=== PATIENT | male | born 1945 | race Caucasian/White ===

== ENCOUNTER → 2017-06-22 | Outpatient (CLI) | payer OTHER ==
[~2017-06-22] MED LIST: ASPIR 8181 MG PO; CLARITIN10 MG PO; EFFIENT10 MG PO; FISH OIL 1,001000 M2 PO; FLEXERIL PO; FLOMAX0.4 MG PO; FLONASE 0.05%50 MCG NASAL; FLOVENT HFA 1110 MCG INH; IMDUR 30 MG TAB30 M1 PO; LIPITOR 20 MG T20 M1 PO; LISINOPRIL10 MG PO; METOPROLOL TART25 MG PO; NAPROSYN500 MG PO; NORCO 10-325 T1 EACH PO; PERCOCET 5-3251 EACH PO; PROAIR HFA8.5 GM INH; SIMVASTATIN40 MG PO; VERAPAMIL ER180 MG PO; VITAMIN E400 UNIT PO
--- NOTE | ~2017-06-22 | 2DMMODE ---
[facility] [place] [address] 2 D/M-MODE ECHOCARDIOGRAM Name: CHHAYA PLUNKETT Room #: REG CL [facility]#: [id number] Admission: 06/22/17 Attend Phys: Mariano Womack MD Discharge: Date of : 49 Date of Service: 06/22/17 1508 Report #: [id number] THIS REPORT FOR: //name// APPROVED REPORT Study performed: 06/22/2017 13:27:58 EXAM: Comprehensive 2D, Doppler, and color-flow Echocardiogram Patient Location: Out-Patient Status: routine BSA: 2.24 HR: 55 bpm BP: 157/93 mmHg Rhythm: NSR Other Information Study Quality: Adequate Technically limited study due to body habitus. Indications CAD, stents Echo Enhancing Agent Indication: Endocardial border delineation Agent(s) / Amount(s) Used: Optison 4 cc 2D Dimensions RVDd: 34.29 mm LVEF(%): 58.76 (>50%) IVSd: 12.36 (7-11mm) LVOT Diam: 21.55 (18-24mm) LVDd: 49.86 mm PWd: 12.35 (7-11mm) Ascending Ao: 34.79 (22-36mm) LVDs: 34.30 (25-40mm) Aortic Root: 31.38 mm Mishra's LVEF: 58.76 % Volumes Left Atrial Volume (Systole) Single Plane 4CH: 35.86 mL Single Plane 2CH: 56.77 mL LA ESV Index: 21.00 mL/m2 Aortic Valve AoV Peak Héctor.: 1.24 m/s AO Peak Gr.: 6.16 mmHg LVOT Max P.66 mmHg LVOT Max V: 1.08 m/s [facility] [address] [place] [address] 2 D/M-MODE ECHOCARDIOGRAM Name: CHHAYA PLUNKETT Room #: REG [facility]#: [id number] Admission: 06/22/17 Attend Phys: Mariano Womack MD Discharge: Date of : 49 Date of Service: 06/22/17 1508 Report #: [id number] LAYLA Vmax: 3.17 cm2 Mitral Valve E/A Ratio: 0.8 MV Decel. Time: 176.70 ms MV E Max Héctor.: 0.70 m/s MV A Héctor.: 0.90 m/s MV PHT: 51.24 ms IVRT: 87.66 ms Pulmonary Valve PV Peak Héctor.: 0.89 m/s PV Peak Gr.: 3.15 mmHg Tricuspid Valve TR Peak Héctor.: 2.34 m/s RAP Estimate: 5.00 mmHg TR Peak Gr.: 21.93 mmHg PA Pressure: 27.00 mmHg Left Ventricle The left ventricle is normal size. Mild concentric left ventricular hypertrophy. Left ventricular systolic function is normal. LVEF is 55-60%. Grade I - abnormal relaxation pattern. Right Ventricle The right ventricle is normal size. The right ventricular systolic function is normal. Atria The left atrium size is normal. Right atrium is at the upper limits of normal. Aortic Valve The aortic valve is sclerotic. Mild aortic regurgitation. There is no aortic valvular stenosis. Mitral Valve The mitral valve is normal in structure. There is no mitral valve regurgitation noted. No evidence of mitral valve stenosis. Tricuspid Valve The tricuspid valve is normal in structure. Mild tricuspid regurgitation. Estimated PAP 25-30 mmHg. Pulmonic Valve The pulmonary valve is normal in structure. Trace pulmonic regurgitation. [facility] [address] [place] [address] 2 D/M-MODE ECHOCARDIOGRAM Name: DIMITRIOSCHHAYA EPIFANIO Room #: REG CL [facility].#: [id number] Admission: 06/22/17 Attend Phys: Mariano Womack MD Discharge: Date of : 49 Date of Service: 06/22/17 1508 Report #: [id number] Great Vessels The aortic root is normal in size. The ascending aorta is normal in size. IVC is normal in size and collapses >50% with inspiration. Pericardium There is no pericardial effusion. <Conclusion> The left ventricle is normal size. Mild concentric left ventricular hypertrophy. Left ventricular systolic function is normal. Grade I - abnormal relaxation pattern. The right ventricle is normal size. The left atrium size is normal. The aortic valve is sclerotic. Mild aortic regurgitation. There is no mitral valve regurgitation noted. Mild tricuspid regurgitation. Estimated PAP 25-30 mmHg. <ELECTRONICALLY SIGNED> By: Mariano Womack MD 06/22/17 1508 1508 1508 Mariano Womack MD /INF
== END ==
LOC: CV 07:19
DX: I08.2 Rheumatic disorders of both aortic and tricuspid valves (principal); I25.10 Atherosclerotic heart disease of native coronary artery without angina pectoris

== ENCOUNTER → 2018-07-10 | Outpatient (CLI) | payer OTHER | LOC: NUC 12:06 | DX: I25.10 Atherosclerotic heart disease of native coronary artery without angina pectoris (principal); I10 Essential (primary) hypertension; E78.5 Hyperlipidemia, unspecified; Z87.891 Personal history of nicotine dependence; Z79.899 Other long term (current) drug therapy; Z88.5 Allergy status to narcotic agent; Z88.1 Allergy status to other antibiotic agents ==

== ENCOUNTER 2019-02-05 10:25 | Emergency (ER) | payer OTHER ==
[~2019-02-05] VITALS: Ht 172.7 cm; Wt 97.5 kg
[2019-02-05 10:48] LABS: HEMATOCRIT 39.9 % (42.0-52.0); HEMOGLOBIN 13.2 gm/dL (14.0-18.0); MCH 27.6 pg (26.0-34.0); MCV 83.6 fL (80.0-100.0); PLATELET COUNT 171 thou/uL (150-400); RBC 4.77 mil/uL (4.50-6.00); RDW 16.5 % (10.5-14.5); WBC 4.8 thou/uL (4.0-11.0)
[2019-02-05 11:01] LABS: ANION GAP 5 mmol/L (7-16); BUN 13 mg/dL (7-18); CALCIUM 9.3 mg/dL (8.5-10.1); CHLORIDE 100 mmol/L (98-107); CO2 28 mmol/L (21-32); GLUCOSE 133 mg/dL (74-106); SODIUM 133 mmol/L (136-145)
[2019-02-05 11:02] LABS: POTASSIUM 4.9 mmol/L (3.5-5.1)
[2019-02-05 11:09] LABS: ALBUMIN 3.3 g/dL (3.4-5.0); MAGNESIUM 1.7 mg/dL (1.8-2.4); PROTIME 18.3 Seconds (9.3-11.4); SGOT 25 U/L (15-37); SGPT 15 U/L (30-65); TOTAL BILIRUBIN 0.7 mg/dL (<0.1-1.0); TOTAL PROTEIN 7.7 g/dL (6.4-8.2); TROPONIN-I <0.06 ng/mL (<0.06)
[2019-02-05] MEDS ORDERED: XARELTO20 MG PO (11:14)
[2019-02-05 11:16] LABS: INR 1.8
[2019-02-05 11:17] LABS: APTT 52.6 Seconds (24.5-32.8); D-DIMER 2.17 ug/mLFEU (0.19-0.50)
[2019-02-05 11:46] LABS: ABSOLUTE NEUTROPHILS 2.4 thou/uL (1.4-8.2); PLATELET ESTIMATE NORMAL
--- NOTE | 2019-02-05 13:58 | EKG ---
[place] [address] [facility] [place] [address] ELECTROCARDIOGRAM REPORT Name: CHHAYA PLUNKETT Room #: REG [facility]#: [id number] Admission: 02/05/19 Attend Phys: Discharge: Date of : 49 Report #: [id number] THIS REPORT FOR: //name// [facility] ED Test Date: 2019-02-05 Test Time: 10:28:38 Pat Name: CHHAYA PLUNKETT Department: Room: Gender: M Customer Service Sales Associate: : 1945 Requested By: Govind Miller Order Number: [id number] MD: Torrey Chavez Measurements Intervals [place] Rate: 87 P: 47 NH: 145 QRS: 16 QRSD: 85 T: 47 QT: 341 QTc: 411 Interpretive Statements Sinus rhythm Minimal ST depression, lateral leads Baseline wander in lead(s) V3,V4,V5,V6 Compared to ECG 06/10/2016 07:27:00 ST (T wave) deviation now present T-wave abnormality no longer present Electronically Signed On 02-05-2019 13:58:49 CDT by Torrey Chavez [email or web address] <ELECTRONICALLY SIGNED> By: Torrey Chavez MD 02/05/19 1358 1028 1028 Torrey Chavez MD /EPI
[2019-02-05] MEDS ORDERED: NORCO 5-325 TA1 EAC1 PO (14:09)
[2019-02-05] MEDS ORDERED: NITROGLYCERIN0.4 MG SUBLING (14:10)
[2019-02-05 14:14] VITALS: BP 109/80
== END 2019-02-05 14:22 | disposition left against medical advice (07) ==
LOC: ER 10:25
PROVIDERS: Emergency Medicine
DX: R07.89 Other chest pain (principal); I25.10 Atherosclerotic heart disease of native coronary artery without angina pectoris; J45.909 Unspecified asthma, uncomplicated; I10 Essential (primary) hypertension; E78.00 Pure hypercholesterolemia, unspecified; Z85.828 Personal history of other malignant neoplasm of skin; Z88.5 Allergy status to narcotic agent; Z88.1 Allergy status to other antibiotic agents; Z88.6 Allergy status to analgesic agent; Z98.890 Other specified postprocedural states; Z87.891 Personal history of nicotine dependence; Z95.2 Presence of prosthetic heart valve; Z86.711 Personal history of pulmonary embolism; Z86.718 Personal history of other venous thrombosis and embolism

== ENCOUNTER → 2019-08-14 | Outpatient (CLI) | payer OTHER ==
[~2019-08-14] MED LIST changes: +NITROGLYCERIN0.4 MG SUBLING; +NORCO 5-325 TA1 EAC1 PO; +XARELTO20 MG PO
== END ==
LOC: SJCVC 14:18
DX: I25.10 Atherosclerotic heart disease of native coronary artery without angina pectoris (principal); I10 Essential (primary) hypertension; E78.00 Pure hypercholesterolemia, unspecified; R60.9 Edema, unspecified

== ENCOUNTER → 2020-01-29 | Outpatient (CLI) | payer OTHER | LOC: SJCVCIMAG 08:47 | PROVIDERS: ATTEND Internal Medicine Cardiovascular Disease | DX: I08.2 Rheumatic disorders of both aortic and tricuspid valves (principal); I11.9 Hypertensive heart disease without heart failure; R94.31 Abnormal electrocardiogram [ECG] [EKG]; R00.0 Tachycardia, unspecified; I25.10 Atherosclerotic heart disease of native coronary artery without angina pectoris; E78.00 Pure hypercholesterolemia, unspecified; Z79.899 Other long term (current) drug therapy ==

== ENCOUNTER → 2020-03-25 | Outpatient (CLI) | payer OTHER | LOC: SJCVC 14:09 | PROVIDERS: ATTEND Internal Medicine Cardiovascular Disease | DX: I25.10 Atherosclerotic heart disease of native coronary artery without angina pectoris (principal); R94.31 Abnormal electrocardiogram [ECG] [EKG]; I10 Essential (primary) hypertension; E78.00 Pure hypercholesterolemia, unspecified; R60.9 Edema, unspecified; I25.2 Old myocardial infarction; Z79.899 Other long term (current) drug therapy ==

== ENCOUNTER → 2020-10-13 | Outpatient (CLI) | payer OTHER | LOC: SJCVCIMAG 07:41 | PROVIDERS: ATTEND Internal Medicine Cardiovascular Disease | DX: R00.0 Tachycardia, unspecified (principal); I25.10 Atherosclerotic heart disease of native coronary artery without angina pectoris; I10 Essential (primary) hypertension; E78.00 Pure hypercholesterolemia, unspecified; R60.9 Edema, unspecified; I48.91 Unspecified atrial fibrillation; I25.2 Old myocardial infarction; M19.90 Unspecified osteoarthritis, unspecified site; E78.5 Hyperlipidemia, unspecified; Z86.711 Personal history of pulmonary embolism; Z72.89 Other problems related to lifestyle; Z79.899 Other long term (current) drug therapy; Z98.61 Coronary angioplasty status; Z88.5 Allergy status to narcotic agent; Z88.1 Allergy status to other antibiotic agents ==

== ENCOUNTER → 2021-04-22 | Outpatient (CLI) | payer OTHER | LOC: SJCVC 10:52 | PROVIDERS: ATTEND Internal Medicine Cardiovascular Disease | DX: R94.31 Abnormal electrocardiogram [ECG] [EKG] (principal); R00.0 Tachycardia, unspecified; I10 Essential (primary) hypertension; I25.10 Atherosclerotic heart disease of native coronary artery without angina pectoris; E78.00 Pure hypercholesterolemia, unspecified; R60.9 Edema, unspecified; J45.909 Unspecified asthma, uncomplicated; Z88.5 Allergy status to narcotic agent; Z88.1 Allergy status to other antibiotic agents; Z79.82 Long term (current) use of aspirin; Z79.899 Other long term (current) drug therapy; Z72.89 Other problems related to lifestyle ==